=== PATIENT | female | born 1995 | race Caucasian/White ===

== ENCOUNTER 2020-01-19 22:06 | Inpatient (IN) | payer OTHER ==
[~2020-01-19] VITALS: Ht 160 cm; Wt 49.9 kg
[2020-01-19] MEDS: LACTATED RINGERS 1,000 ML IV SCH (00:25)
[2020-01-19] MEDS ORDERED: PREN-380 PO (22:56)
[2020-01-19] MEDS ORDERED: METHYLERGONOVINE 0.2 MG/ML AMP IM PRN (23:00)
[2020-01-19] MEDS ORDERED: PROMETHAZINE 25 MG/ML VIAL IVP PRN (23:00)
[2020-01-19] MEDS ORDERED: CARBOPROST 250 MCG/ML AMP IM PRN (23:00)
[2020-01-19 23:41] LABS: APPEARANCE,URINE CLEAR (CLEAR); BILIRUBIN,URINE NEGATIVE (NEGATIVE); BLOOD, URINE NEGATIVE (NEGATIVE); COLOR,URINE YELLOW (YELLOW); LEUKOCYTE ESTERASE ,URINE 1+ (NEGATIVE); NITRITE, URINE NEGATIVE (NEGATIVE); UGLUCOSE NEGATIVE (NEGATIVE)
[2020-01-19 23:42] LABS: BASOPHILS % (AUTO) 0.2 % (0.0-2.0); EOSINOPHILS % (AUTO) 0.4 % (0.0-4.0); HEMATOCRIT 30.7 % (36-48); HEMOGLOBIN 10.5 g/dL (12.0-16.0); LYMPHOCYTES % (AUTO) 28.9 % (20.5-51.1); MEAN CORPUSCULAR HEMOGLOBIN 33 pg (27-31); MEAN CORPUSCULAR HGB CONC 34 g/dL (33-37); MEAN CORPUSCULAR VOLUME 95.7 fL (80-94); MONOCYTES # (AUTO) 0.4 K/uL (0.8-1.0); MONOCYTES % (AUTO) 5.1 % (1.7-9.3); NEUTROPHILS # (AUTO) 4.5 K/uL (1.8-7.7); NEUTROPHILS % (AUTO) 65.4 % (42.2-75.2); PLATELET COUNT (AUTO) 253 K/uL (140-450); RED BLOOD CELL COUNT(AUTO) 3.21 MIL/uL (4.20-5.40); RED CELL DISTRIBUTION WIDTH 13.4 % (11.6-13.7); WHITE BLOOD COUNT (AUTO) 6.8 K/uL (4.8-10.8)
[2020-01-19 23:51] LABS: RBC,URINE 0-5 /HPF (0-5)
[2020-01-20] MEDS ORDERED: AMPICILLIN 2,000 MG in NACL 0.9% 100 ML IV SCH ×2
[2020-01-20] MEDS ORDERED: MISOPROSTOL 25 MCG TAB VG SCH
[2020-01-20] MEDS ORDERED: AMPICILLIN 2,000 MG VIAL ONE (00:05)
[2020-01-20] MEDS ORDERED: MISOPROSTOL 25 MCG TAB ONE (00:08)
[2020-01-20 00:10] LABS: ALBUMIN 2.9 g/dL (3.4-5.0); ANION GAP 13.6 (8-16); CARBON DIOXIDE 23.5 mmol/L (21-32); CREATININE 0.7 mg/dL (0.6-1.3); POTASSIUM 4.1 mmol/L (3.5-5.1); TOTAL BILIRUBIN 0.5 mg/dL (0.0-1.0)
[2020-01-20] MEDS: fentaNYL 0.05 MG/ML VIAL IVP PRN ×2 (03:02→06:29)
[2020-01-20] MEDS ORDERED: BUPIVACAINE 0.125%/NS PREMIX 250 ML ONE (04:17)
[2020-01-20] MEDS: AMPICILLIN 1,000 MG in NACL 0.9% 50 ML IV SCH ×2 (04:38→09:51)
[2020-01-20] MEDS ORDERED: AMPICILLIN 1,000 MG VIAL ONE ×2 (04:41→08:16)
[2020-01-20] MEDS ORDERED: OXYTOCIN 20 UNITS/LR PREMIX 1,000 ML IV ONE (04:46)
--- NOTE | 2020-01-20 06:20 | NUR ---
PATIENT HAS BEEN SCREENED AND CATEGORIZED LOW NUTRITION RISK. PATIENT WILL BE SEEN WITHIN 7 DAYS OF ADMISSION. 01/27/20 KING SUTHERLAND MS, RDN
[2020-01-20] MEDS: LACTATED RINGERS 1,000 ML IV SCH (06:28)
[2020-01-20] MEDS ORDERED: AMPICILLIN 1,000 MG in NACL 0.9% 50 ML IV SCH (06:30)
[2020-01-20] MEDS ORDERED: OXYTOCIN 10 UNITS/ML VIAL IM PRN (10:00)
[2020-01-20] MEDS ORDERED: BISACODYL 5 MG TABEC PO PRN (10:00)
[2020-01-20] MEDS ORDERED: MEASLES, MUMPS, AND RUBELLA 1 VIAL SQVAC PRN (10:00)
[2020-01-20] MEDS ORDERED: METHYLERGONOVINE 0.2 MG/ML AMP IM PRN (10:00)
[2020-01-20] MEDS ORDERED: METHYLERGONOVINE 0.2 MG TAB PO PRN (10:00)
[2020-01-20] MEDS ORDERED: IBUPROFEN 600 MG TAB PO PRN ×2 (10:00)
[2020-01-20] MEDS ORDERED: BENZOCAINE/MENTHOL 20%-0.5% 60 GM CAN TP PRN (10:00)
[2020-01-20] MEDS ORDERED: SIMETHICONE 80 MG TAB.CHEW PO PRN (10:00)
[2020-01-20] MEDS: DOCUSATE SODIUM 100 MG GELCAP PO PRN (20:58)
[2020-01-21] MEDS: IBUPROFEN 800 MG TAB PO PRN ×2 (01:46→09:25)
[2020-01-21 08:18] LABS: HEMATOCRIT 31.1 % (36-48); HEMOGLOBIN 10.4 g/dL (12.0-16.0)
[2020-01-21] MEDS: DOCUSATE SODIUM 100 MG GELCAP PO PRN (21:13)
== END 2020-01-22 09:55 | disposition home or self-care (01) | DRG 560 ==
LOC: MLD 22:06 → MFCC 01-20 11:45
PROVIDERS: ADMIT Obstetrics & Gynecology; ATTEND Obstetrics & Gynecology
PROC: 3E0234Z Introduction of Serum, Toxoid and Vaccine into Muscle, Percutaneous Approach (ICD-10-PCS; principal; 2020-01-20)
PROC: 10E0XZZ Delivery of Products of Conception, External Approach (ICD-10-PCS; 2020-01-20)
PROC: 3E0R3BZ Introduction of Anesthetic Agent into Spinal Canal, Percutaneous Approach (ICD-10-PCS; 2020-01-20)
PROC: 00HU33Z Insertion of Infusion Device into Spinal Canal, Percutaneous Approach (ICD-10-PCS; 2020-01-20)
PROC: 10907ZC Drainage of Amniotic Fluid, Therapeutic from Products of Conception, Via Natural or Artificial Opening (ICD-10-PCS; 2020-01-20)
DX: O99.824 Streptococcus B carrier state complicating childbirth (principal); Z23 Encounter for immunization; Z37.0 Single live birth; Z3A.39 39 weeks gestation of pregnancy
CPT/HCPCS: 36415; 59200; 59409; 80053; 81001; 85018; 85025; 86592; 86886; 86900; 86901; 87086; 90715; J0290; J2550; J2590; J3010; J3490; J7120